=== PATIENT | female | born 1985 | race Caucasian/White ===

== ENCOUNTER 2016-09-26 23:22 | Emergency (ER) | payer BC ==
[2016-09-27 02:12] VITALS: BP 102/70
== END 2016-09-27 02:12 | disposition home or self-care (01) ==
LOC: ED 23:22
DX: S09.90XA Unspecified injury of head, initial encounter (principal); W22.8XXA Striking against or struck by other objects, initial encounter; Y93.89 Activity, other specified; Y92.89 Other specified places as the place of occurrence of the external cause; Y99.8 Other external cause status